=== PATIENT | female | born 1995 | race Caucasian/White ===

== ENCOUNTER 2019-07-08 06:10 | Day surgery (SDC) | payer OTHER ==
[~2019-07-08] VITALS: Ht 170.2 cm; Wt 131.5 kg
[~2019-07-08 06:10] MED LIST: APRI1 EACH PO; ONDANSETRON HCL4 M3 PO
[2019-07-08 07:34] VITALS: BP 119/62
[2019-07-08] MEDS ORDERED: IBUPROFEN 200200 M1 PO (11:07)
[2019-07-08] MEDS ORDERED: ACETAMINOPHEN325 M1 PO (11:08)
[2019-07-08] MEDS ORDERED: COLACE 100 MG100 MG PO (11:08)
[2019-07-08] MEDS ORDERED: OXYCODONE HCL 55 MG PO (11:08)
[2019-07-08] MEDS ORDERED: ULTRAM50 MG PO (11:09)
[2019-07-08] MEDS ORDERED: MIRALAX17 GM PO (11:09)
[2019-07-08 11:15] VITALS: BP 119/62
--- NOTE | 2019-07-12 11:07 | PATH ---
[facility] [address] [place] [address] PATHOLOGY RPT PROCEDURE Name: RASHEEDA FORDE Room #: DEP [facility] M.R.#: [id number] Admission: 07/08/19 Date of : 89 Discharge: 07/08/19 Report #: [id number] Path Case #: [id number] [facility] Accession Number: [id number] . 01 Material submitted: . gallbladder - GALLBLADDER . 01 Clinical history: . Calculus of gallbladder without cholecystitis without obstruction . 02 Diagnosis: Gallbladder, cholecystectomy: - Mild chronic cholecystitis. - Cholesterolosis. - Incidental reactive lymph node. . (IUV:mml; 07/09/2019) QL 07/09/2019 1603 Local . 02 Electronically signed: . Kely Delcid MD, Pathologist NPI- [id number] . 01 Gross description: . The specimen is received in formalin labeled "Rasheeda Forde, gallbladder" and consists of an intact but punctured pink-kay smooth gallbladder measuring 6.9 x 2.4 x 1.3 cm. The margin is inked black. Opening reveals a lumen filled with green bile and no calculi. No calculi are present within the container. The mucosa is green with extensive yellow stippling and an average wall thickness of 0.1 cm. No masses are identified. Adjacent the gallbladder neck is a lymph node measuring 2.7 x 0.5 cm. Technical Assistant sections are submitted in A1. (SDY; 07/08/2019) SYU/SYU 07/08/2019 1553 Local . 02 Pathologist provided ICD-10: K81.1, K82.4 . 02 CPT . 219957 Specimen Comment: A courtesy copy of this report has been sent to [phone], [phone] Specimen Comment: [phone] Specimen Comment: Report sent to and Performed at: [address], [place], [place] [id number] [place] [address] PATHOLOGY RPT PROCEDURE Name: EULARASHEEDACAROLINA TUTTLE Room #: DEP [facility] Emy#: [id number] Admission: 07/08/19 Date of : 89 Discharge: 07/08/19 Report #: [id number] Path Case #: [id number] MD Rafael Abbasi MD Phone: [phone] Performed at: [address] [id number] MD Kely Delcid MD Phone: [phone]
== END 2019-07-08 12:50 | disposition home or self-care (01) ==
LOC: TBA 06:10 → OR 06:10
DX: K81.1 Chronic cholecystitis (principal); R59.0 Localized enlarged lymph nodes; Z98.890 Other specified postprocedural states; Z79.899 Other long term (current) drug therapy
CPT/HCPCS: 50010; 50101; 50249; 50411; 50555; 50558; 51489; 52265; 52266; 53307; 53310; 53312; 54022; 54118; 55245; 56462; 56525; 56526; 62110; 62900; 70005